=== PATIENT | male | born 2000 | race Native Hawaiian/Other Pacific Islander ===

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

== ENCOUNTER 2021-10-31 20:20 | Emergency (ER) | payer BC ==
[~2021-10-31] VITALS: Ht 182.9 cm; Wt 72.6 kg
[2021-10-31 22:16] LABS: PLATELET COUNT 174 K/uL (142-355)
[2021-10-31 22:24] LABS: POTASSIUM 3.7 mmol/L (3.6-5.2)
[2021-10-31 23:29] VITALS: BP 110/44; TEMP 97.2
== END 2021-10-31 23:30 | disposition home or self-care (01) ==
LOC: ED 20:20
PROVIDERS: Emergency Medicine
DX: M79.18 Myalgia, other site (principal); R10.84 Generalized abdominal pain
CPT/HCPCS: 36415; 80053; 81000; 85027; 96360; 96372; 99284; J1885